=== PATIENT | female | born 1995 | race Caucasian/White ===

== ENCOUNTER 2016-12-17 16:33 | Emergency (ER) | payer OTHER, BC ==
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
== END 2016-12-17 17:30 | disposition home or self-care (01) ==
LOC: VM.ED 16:33
DX: H20.9 Unspecified iridocyclitis (principal)
CPT/HCPCS: 99283